=== PATIENT | female | born 1960 | race Caucasian/White ===

== ENCOUNTER 2017-05-03 12:32 | Inpatient (IN) | payer BC ==
[~2017-05-03] VITALS: Ht 162.6 cm; Wt 78.5 kg
[2017-05-03] MEDS ORDERED: IV NORMAL SALINE 1000 ML BAG IV ONE (13:00)
--- NOTE | 2017-05-03 13:10 | NUR ---
PATIENT WAS SEEN BY MD FOR C/O DIARRHEA. PATIENT ALSO C/O ABDOMINAL PAIN. SHE IS SITTING UP, SHE IS AWAKE AND ALERT.
[2017-05-03] MEDS ORDERED: ALPR0.5T8 PO (13:34)
[2017-05-03] MEDS ORDERED: TRAZ-144 PO (13:34)
[2017-05-03] MEDS ORDERED: DESV50TA PO (13:34)
[2017-05-03 13:49] LABS: BASOPHILS % (AUTO) 0.3 % (0.0-2.0); EOSINOPHILS # (AUTO) 0.1 K/uL (0.0-0.7); EOSINOPHILS % (AUTO) 0.5 % (0.0-7.0); HEMATOCRIT 49.3 % (31.2-41.9); HEMOGLOBIN 16.4 g/dL (10.9-14.3); LYMPHOCYTES # (AUTO) 3.6 K/uL (20.0-40.0); LYMPHOCYTES % (AUTO) 29.4 % (20.5-51.5); MEAN CORPUSCULAR HEMOGLOBIN 27.3 uug (24.7-32.8); MEAN CORPUSCULAR HGB CONC 33 g/dL (32.3-35.6); MEAN CORPUSCULAR VOLUME 82.3 fL (75.5-95.3); MONOCYTES % (AUTO) 7.8 % (0.0-11.0); NEUTROPHILS # (AUTO) 7.6 K/uL (1.8-8.9); PLATELET COUNT (AUTO) 415 K/uL (179-408); RED BLOOD CELL COUNT(AUTO) 5.99 MIL/uL (3.63-4.92); WHITE BLOOD COUNT (AUTO) 12.2 K/uL (3.8-11.8)
[2017-05-03 14:13] LABS: BILIRUBIN,DIRECT 0.1 mg/dL (0.0-0.2); BILIRUBIN,TOTAL 0.7 mg/dL (0.2-1.0); CREATININE 1.4 mg/dL (0.6-1.3); POTASSIUM 3.6 mmol/L (3.5-5.1); TOTAL PROTEIN, SERUM 8.5 g/dL (6.4-8.2)
--- NOTE | 2017-05-03 14:22 | NUR ---
PATIENT IS AWAKE AND ALERT WITH NO NEW COMPLAINTS. AWAITING TEST RESULTS.
--- NOTE | 2017-05-03 14:26 | NUR ---
RECEIVED PATIENT FROM ER VIA XMPie, REPORT GIVEN PRIOR TO PATIENT'S ARRIVAL BY ANTONIA HOFFMANN. PATIENT IS AMBULATORY, RECEIVED WITH IVF NS RUNNING FROM ER. IV ACCESS ON THE RIGHT AC #20 INTACT AND PATENT. NOTIFIED DR. ODEN FOR ADMISSION ORDERS, NO COMPLAINTS OF PAIN AND DISCOMFORT AT THIS TIME. WILL CONTINUE TO MONITOR CLOSELY.
--- NOTE | 2017-05-03 16:04 | NUR ---
PATIENT AWARE OF PENDING ADMISSION TO HOSPITAL. REPORT GIVEN TO EDUARDA HOFFMANN.
[2017-05-03 16:45] VITALS: BP 104/66
[2017-05-03] MEDS ORDERED: MORPHINE SULFATE 2 MG/1 ML DISP.SYRIN IV PRN (18:15)
[2017-05-03] MEDS ORDERED: INFLUENZA VACCINE 2017-2018 0.5 ML DISP.SYRIN IM ONE (20:00)
[2017-05-03 20:20] VITALS: BP 119/62
[2017-05-03] MEDS ORDERED: LEVOFLOXACIN 500 MG/D5W 500 MG in PREMIXED 1 EACH IV SCH (20:30)
[2017-05-03] MEDS ORDERED: LEVOFLOXACIN 500 MG/D5W 500 MG in PREMIXED 1 EACH IV ONE (21:00)
[2017-05-03] MEDS: MORPHINE SULFATE 4 MG/1 ML DISP.SYRIN IV PRN (21:36)
[2017-05-03] MEDS: TRAZODONE 50 MG TABLET PO SCH (21:36)
[2017-05-03] MEDS: ALPRAZOLAM 0.5 MG TABLET PO SCH (21:36)
[2017-05-03] MEDS: METRONIDAZOLE 500 MG/NS 100ML 500 MG in PREMIXED 1 EACH IV SCH ×2 (22:00→23:21)
[2017-05-03] MEDS: POTASSIUM CHLORIDE 20 MEQ in IV NS 1000 ML 1,000 ML IV PRN (22:22)
[2017-05-04 00:28] VITALS: BP 95/57
[2017-05-04] MEDS: ONDANSETRON 4 MG/2 ML VIAL IV PRN ×3 (02:01→22:46)
[2017-05-04 04:00] VITALS: BP 86/50
[2017-05-04] MEDS: PANTOPRAZOLE SODIUM 40 MG TABLET.DR PO SCH (05:59)
[2017-05-04] MEDS: METRONIDAZOLE 500 MG/NS 100ML 500 MG in PREMIXED 1 EACH IV SCH ×3 (06:32→22:46)
[2017-05-04 07:32] LABS: THYROID STIMULATING HORMONE 5.566 mIU/mL (0.358-3.740)
[2017-05-04 07:51] LABS: BASOPHILS # (AUTO) 0.1 K/uL (0.0-8.0); BASOPHILS % (AUTO) 0.8 % (0.0-2.0); EOSINOPHILS # (AUTO) 0.4 K/uL (0.0-0.7); EOSINOPHILS % (AUTO) 4.8 % (0.0-7.0); LYMPHOCYTES # (AUTO) 3.3 K/uL (20.0-40.0); LYMPHOCYTES % (AUTO) 37.4 % (20.5-51.5); MEAN CORPUSCULAR HEMOGLOBIN 27.6 uug (24.7-32.8); MEAN CORPUSCULAR HGB CONC 33 g/dL (32.3-35.6); MEAN CORPUSCULAR VOLUME 83.2 fL (75.5-95.3); MONOCYTES # (AUTO) 0.9 K/uL (2.0-10.0); MONOCYTES % (AUTO) 10.1 % (0.0-11.0); NEUTROPHILS # (AUTO) 4.1 K/uL (1.8-8.9); NEUTROPHILS % (AUTO) 46.9 % (38.5-71.5); RED BLOOD CELL COUNT(AUTO) 4.83 MIL/uL (3.63-4.92)
[2017-05-04 07:53] LABS: HEMATOCRIT 40.2 % (31.2-41.9); HEMOGLOBIN 13.3 g/dL (10.9-14.3); PLATELET COUNT (AUTO) 273 K/uL (179-408); WHITE BLOOD COUNT (AUTO) 8.8 K/uL (3.8-11.8)
--- NOTE | 2017-05-04 08:00 | NUR ---
TOLERATING CLEAR LIQUID WELL, NO ACTIVE VOMITING. NO REACTION FROM IV ANTIBIOTIC. WITH IVF NS AT 80ML/HR
[2017-05-04 08:26] LABS: BILIRUBIN,TOTAL 0.6 mg/dL (0.2-1.0); CREATININE 1.1 mg/dL (0.6-1.3); MAGNESIUM 1.9 mg/dL (1.8-2.4); PHOSPHOROUS 4.1 mg/dL (2.5-4.9); POTASSIUM 3.5 mmol/L (3.5-5.1); TOTAL PROTEIN, SERUM 6.8 g/dL (6.4-8.2)
[2017-05-04] MEDS ORDERED: DESVENLAFAXINE SUCCINATE PO SCH (09:00)
[2017-05-04 11:08] VITALS: BP 100/48
[2017-05-04] MEDS ORDERED: POTASSIUM CHLORIDE 20 MEQ TAB.PRT.SR PO ONE (12:00)
--- NOTE | 2017-05-04 12:00 | NUR ---
NO ACUTE CHANGE CONTINUE CURRENT TX PLAN
[2017-05-04] MEDS: MORPHINE SULFATE 4 MG/1 ML DISP.SYRIN IV PRN (12:35)
[2017-05-04 15:06] VITALS: BP 104/63
[2017-05-04] MEDS ORDERED: DESVENLAFAXINE 100 MG PO SCH ×2 (15:15→16:43)
[2017-05-04 17:36] LABS: *BILIRUBIN,URIN NEGATIVE (NEGATIVE); *BLOOD, URINE Trace-lysed (NEGATIVE); *COLOR,URINE YELLOW (YELLOW); *KETONES,URINE 1+ (NEGATIVE); *PROTEIN,URINE NEGATIVE (NEGATIVE); *UROBILINOGEN,URINE 0.2 E.U./dl (NORMAL); LEUKOCYTE ESTERASE ,URINE TRACE (NEGATIVE); NITRITE, URINE NEGATIVE (NEGATIVE); PH,URINE 5.5 (5.0-8.0); UGLUCOSE NEGATIVE (NEGATIVE)
--- NOTE | 2017-05-04 18:05 | NUR ---
STARTED ON REGULAR DIET, CLOSELY MONITORED. SR ON MONITOR
[2017-05-04 18:14] LABS: *CLARITY,URINE SLIGHTLY HAZY (CLEAR)
[2017-05-04 18:15] LABS: MUCUS,URINE MODERATE /LPF (0-FEW); SQUAMOUS EPITHELIAL CELL,UR MODERATE /HPF (NONE SEEN)
[2017-05-04 20:00] VITALS: BP 99/46
[2017-05-04] MEDS ORDERED: LEVOFLOXACIN 250MG /D5W 250 MG in PREMIXED 1 EACH IV SCH (21:00)
[2017-05-04] MEDS ORDERED: LEVOFLOXACIN 500 MG/D5W 100 ML ONE (21:21)
[2017-05-04] MEDS: TRAZODONE 50 MG TABLET PO SCH (21:25)
[2017-05-04] MEDS: ALPRAZOLAM 0.5 MG TABLET PO SCH (21:26)
[2017-05-04] MEDS: LEVOFLOXACIN 500 MG/D5W 500 MG in PREMIXED 1 EACH IV SCH (21:26)
[2017-05-04] MEDS: SIMVASTATIN 20 MG TABLET PO SCH (21:26)
[2017-05-05] MEDS: POTASSIUM CHLORIDE 20 MEQ in IV NS 1000 ML 1,000 ML IV PRN (00:16)
[2017-05-05] MEDS: ONDANSETRON 4 MG/2 ML VIAL IV PRN ×3 (04:58→22:22)
[2017-05-05 06:00] VITALS: BP 140/72
[2017-05-05] MEDS: PANTOPRAZOLE SODIUM 40 MG TABLET.DR PO SCH (06:10)
[2017-05-05] MEDS: ACETAMINOPHEN 325 MG TABLET PO PRN ×2 (06:11→16:19)
[2017-05-05] MEDS: METRONIDAZOLE 500 MG/NS 100ML 500 MG in PREMIXED 1 EACH IV SCH ×3 (06:12→22:24)
--- NOTE | 2017-05-05 06:30 | NUR ---
PT ALERT AWAKE IN NO ACUTE DISTRESS. ABLE TO HAVE FLAGYL IV THERAPY WITHOUT DIFFICULTY. PT STATED SHE HAD SOME PAIN TO IV LEVAQUIN LAST NIGHT. PT OFFERED TYLENOL AT THIS TIME FOR COMFORT MEASURES. DENIES ANY SOB. NO EPISODES OF NAUSEA AT THIS TIME. CONTINUE TO MONITOR. CONTINUOUS IV FLUIDS MAINTAINED WITH CALL LIGHT WITHIN REACH.
[2017-05-05 06:49] LABS: BASOPHILS # (AUTO) 0.1 K/uL (0.0-8.0); BASOPHILS % (AUTO) 1.2 % (0.0-2.0); EOSINOPHILS # (AUTO) 0.3 K/uL (0.0-0.7); EOSINOPHILS % (AUTO) 4.2 % (0.0-7.0); HEMATOCRIT 38.7 % (31.2-41.9); HEMOGLOBIN 13.1 g/dL (10.9-14.3); LYMPHOCYTES # (AUTO) 2.4 K/uL (20.0-40.0); LYMPHOCYTES % (AUTO) 34.7 % (20.5-51.5); MEAN CORPUSCULAR HEMOGLOBIN 28.2 uug (24.7-32.8); MEAN CORPUSCULAR HGB CONC 34 g/dL (32.3-35.6); MEAN CORPUSCULAR VOLUME 83.2 fL (75.5-95.3); MONOCYTES # (AUTO) 0.7 K/uL (2.0-10.0); MONOCYTES % (AUTO) 9.5 % (0.0-11.0); NEUTROPHILS # (AUTO) 3.5 K/uL (1.8-8.9); NEUTROPHILS % (AUTO) 50.4 % (38.5-71.5); PLATELET COUNT (AUTO) 265 K/uL (179-408); RED BLOOD CELL COUNT(AUTO) 4.65 MIL/uL (3.63-4.92)
[2017-05-05 06:57] LABS: CREATININE 0.9 mg/dL (0.6-1.3); MAGNESIUM 1.8 mg/dL (1.8-2.4); PHOSPHOROUS 3.3 mg/dL (2.5-4.9); POTASSIUM 3.7 mmol/L (3.5-5.1)
[2017-05-05] MEDS: DESVENLAFAXINE 100 MG PO SCH (10:22)
[2017-05-05 12:02] VITALS: BP 133/70
[2017-05-05 15:39] VITALS: BP 116/68
--- NOTE | 2017-05-05 17:36 | NUR ---
PATIENT IS ALERT AND ORIENTED. ABLE TO FOLLOWS INSTRUCTION. SHE HAD A EPISODE OF ANXIETY BUT ABLE CALM DOWN. SHE CAN ALSO ABLE TO MANAGE HER DAILY ACTIVITY. THE PLAN FOR TODAY IS D/C HOME BUT SHE CLAIMING NOT TO GO HOME BECAUSE NOBODY IS ARROUND THAT COULD HELP HER HOME. STILL PATIENT PLAN TO GO HOME TOMOROW. STABLE CONDITION .
--- NOTE | 2017-05-05 19:00 | NUR ---
RECEIVED PATIENT IN BED, ALERT ORIENTED NO SOB NO CHEST PAIN, COMPLAIN OF IV SITE PAIN, WILL CHANGED SITE, ATTEND ALL NEEDS. CALL LIGHT WITHIN REACH.
[2017-05-05 20:00] VITALS: BP 122/75
[2017-05-05] MEDS: SIMVASTATIN 20 MG TABLET PO SCH (20:15)
[2017-05-05] MEDS: ALPRAZOLAM 0.5 MG TABLET PO SCH (20:15)
[2017-05-05] MEDS: TRAZODONE 50 MG TABLET PO SCH (20:15)
[2017-05-05] MEDS: LEVOFLOXACIN 500 MG/D5W 500 MG in PREMIXED 1 EACH IV SCH (21:43)
--- NOTE | 2017-05-05 22:10 | NUR ---
GAVE REPORT TO INCOMING NURSE.
[2017-05-06] VITALS (17 sets, daily range): BP systolic 72–124; BP diastolic 37–77
[2017-05-06] MEDS: POTASSIUM CHLORIDE 20 MEQ in IV NS 1000 ML 1,000 ML IV PRN (04:00)
[2017-05-06] MEDS: METRONIDAZOLE 500 MG/NS 100ML 500 MG in PREMIXED 1 EACH IV SCH ×3 (05:14→22:11)
--- NOTE | 2017-05-06 05:26 | NUR ---
aaox4 no acute distress noted. IVF's infusing well. IV antibiotics given as scheduled. Had one episode of nausea, zofran given. felt better. voiding well. will monitor patient. quiet night.
[2017-05-06] MEDS: PANTOPRAZOLE SODIUM 40 MG TABLET.DR PO SCH (06:10)
--- NOTE | 2017-05-06 08:00 | NUR ---
PT C/O N/V YELLOW AND CLEAR WITH WHITE MUCUS. NOTIFIED.
[2017-05-06] MEDS: ONDANSETRON 4 MG/2 ML VIAL IV PRN (08:26)
--- NOTE | 2017-05-06 08:26 | NUR ---
ZOFRAN GIVEN TO PT FOR N/V PT HAD 5-6 EMESIS. AFTER ZOFRAN GIVEN VOMITING STOPPED. MEDICATION EFFECTIVE. PT AFTERWARDS PULLED OUT IV. PENDING INSERTION OF NEW IV. NOTIFIED, PICC LINE ORDERED.
[2017-05-06] MEDS: DESVENLAFAXINE 100 MG PO SCH (08:27)
[2017-05-06] MEDS: MORPHINE SULFATE 4 MG/1 ML DISP.SYRIN IV PRN (09:40)
[2017-05-06] MEDS ORDERED: ALBUTEROL SULFATE 2.5 MG/3 ML NEBU NEB PRN (12:00)
--- NOTE | 2017-05-06 12:45 | NUR ---
PT APPEARS PAIL AND SKIN BECOMES BLOTCHY, PT CONFUSED AND CONTINUES TO LASH OUT AT NURSES. MD NOTIFIED. CONTINUE TO MONITOR PT.
[2017-05-06] MEDS ORDERED: ZIPRASIDONE MESYLATE 20 MG VIAL IM PRN (13:00)
[2017-05-06] MEDS: LORAZEPAM 2 MG/1 ML VIAL IV PRN ×2 (13:17→15:41)
--- NOTE | 2017-05-06 13:20 | NUR ---
PT BP 127/75, HEART RATE 128, O2 SAT 89% 2L NASAL CANNULA. MD NOTIFIED. CONTINUE TO MONITOR PT. PT CONFUSED.
[2017-05-06 13:48] LABS: ABG BASE EXCESS -16.3 mmol/L; ABG PCO2 14.2 mmHg (35.0-45.0); ABG PH 7.309 (7.350-7.450); ABG SITE RIGHT RADIAL; ABG TOTAL HEMOGLOBIN 14.2 G/dL (12.0-16.0); COHb 1.4 % (0.5-1.5); MetHb 0.5 % (0.0-1.5); O2Hb 94.3 % (94.0-97.0); VENT MODE Nasal Cannula
--- NOTE | 2017-05-06 13:59 | NUR ---
VITAL SIGNS 4L NC 90% SAT, PULSE 148, BP 124/75. MD NOTIFIED.
[2017-05-06 14:21] LABS: BASOPHILS # (AUTO) 0.1 K/uL (0.0-8.0); BASOPHILS % (AUTO) 0.3 % (0.0-2.0); LYMPHOCYTES # (AUTO) 2.4 K/uL (20.0-40.0); LYMPHOCYTES % (AUTO) 9.8 % (20.5-51.5); MEAN CORPUSCULAR HEMOGLOBIN 27.6 uug (24.7-32.8); MEAN CORPUSCULAR HGB CONC 32 g/dL (32.3-35.6); MEAN CORPUSCULAR VOLUME 85.6 fL (75.5-95.3); MONOCYTES # (AUTO) 0.6 K/uL (2.0-10.0); MONOCYTES % (AUTO) 2.5 % (0.0-11.0); NEUTROPHILS # (AUTO) 21.7 K/uL (1.8-8.9); NEUTROPHILS % (AUTO) 87.4 % (38.5-71.5); RED BLOOD CELL COUNT(AUTO) 4.98 MIL/uL (3.63-4.92)
--- NOTE | 2017-05-06 14:24 | NUR ---
PT LACTIC ACID LEVEL OF 14.8, MD NOTIFIED. CRITCAL BICARB 8, MD NOTIFIED
[2017-05-06 14:26] LABS: HEMATOCRIT 42.7 % (31.2-41.9); HEMOGLOBIN 13.8 g/dL (10.9-14.3); PLATELET COUNT (AUTO) 441 K/uL (179-408); WHITE BLOOD COUNT (AUTO) 24.9 K/uL (3.8-11.8)
[2017-05-06 14:28] LABS: BILIRUBIN,TOTAL 0.5 mg/dL (0.2-1.0); CREATININE 1.9 mg/dL (0.6-1.3); MAGNESIUM 2.1 mg/dL (1.8-2.4); PHOSPHOROUS 5.3 mg/dL (2.5-4.9); POTASSIUM 3.6 mmol/L (3.5-5.1); TOTAL PROTEIN, SERUM 7.7 g/dL (6.4-8.2)
[2017-05-06] MEDS ORDERED: CEFEPIME HCL 1 G in IV DEXTROSE 5% 50 ML IV SCH ×2 (14:30→16:00)
[2017-05-06] MEDS ORDERED: ENOXAPARIN SODIUM 80 MG/0.8 ML DISP.SYRIN SQ ONE ×2 (14:30→15:00)
--- NOTE | 2017-05-06 14:40 | NUR ---
PT TRANSFERRED TO CCU. REPORT GIVEN TO CCU NURSE DANAE AT BEDSIDE, TRANSFERRED WITH ALL BELONGINGS,AND CHART.
--- NOTE | 2017-05-06 14:40 | NUR ---
Pt brought from 2nd floor room #220 to ICU unit per MD order. Full SBAR report received by TAHIRA Murillo. Pt noted to be tachycardic 137's and MD already made aware.
[2017-05-06 15:04] LABS: LYMPHOCYTES % (MANUAL) 11 % (20-40); MONOCYTES % (MANUAL) 1 % (2-10); NEUTROPHILS % (MANUAL) 88 % (42-75)
--- NOTE | 2017-05-06 15:12 | NUR ---
CLINICAL PHARMACY NOTE: VANCOMYCIN DOSING Request for vancomycin dosing on 56 y/o female 5'4" 160 lbs for documented infection temp 98.2 BUN 5 Scr 1.9 WBC 24.9 also on cefepime Give vancomycin 1gm ivpb today. Will dose by level. Random level ordered for tomorrow.
[2017-05-06] MEDS ORDERED: ACETAMINOPHEN 650 MG SUPP.RECT RC PRN (15:15)
[2017-05-06] MEDS ORDERED: DEXTROSE 50% 50 ML DISP.SYRIN IV PRN (15:15)
[2017-05-06] MEDS ORDERED: INSULIN REGULAR, HUMAN 300 UNIT/3 ML VIAL SQ PRN (15:15)
[2017-05-06] MEDS: BLOOD SUGAR DIAGNOSTIC 1 EACH STRIP VI SCH ×2 (15:32→17:45)
[2017-05-06] MEDS: POTASSIUM CHLORIDE 20 MEQ in IV D5/ 0.9% NACL 1,000 ML IV PRN (15:37)
--- NOTE | 2017-05-06 15:41 | NUR ---
PT FIGHTING, LASHING OUT, PULLING OUT IVS,TOSSING TURNING, NOT ALLOWING CARE. MD NOTIFIED. PT GIVEN ATIVAN AND GEODON PER MD ORDER. MEDICATION EFFECTIVE.
--- NOTE | 2017-05-06 16:10 | NUR ---
dental assisting instructor at the bedside with students for arroyo insertion as ordered by .
[2017-05-06] MEDS: CEFEPIME HCL 1 G in IV NORMAL SALINE 50 ML IV SCH (16:51)
[2017-05-06] MEDS ORDERED: VANCOMYCIN IV 1 G in PREMIXED 0 EACH IV ONE (17:00)
[2017-05-06] MEDS: ASPIRIN 300 MG RECTAL SUPP RC SCH (18:19)
--- NOTE | 2017-05-06 19:30 | NUR ---
patient in bed awake ,but confused ,able to verbalized needs but needs to be reoriented to place ,time and event ,constant reorientation needed ,advised patient to call for help and assistance ,frequent visits done .
--- NOTE | 2017-05-06 19:30 | NUR ---
DR: CECILLE CAME AND UPDATED WITH PATIENTS STATUS AND CONDITION . INFORMED ABOUT TROPONIN LEVEL 4.[address] ABDOMEN NOT DONE YET . CAME AND SPOKED WITH PATIENT . CONTINUE TO MONITOR V/S AND LEVELS OF COMFORT.
--- NOTE | 2017-05-06 20:45 | NUR ---
BRIAN MACE came and examined patient ,spoked with patient at bedside . updated with patient lab results and patient mentation .
[2017-05-06] MEDS: FAMOTIDINE. 20 MG/2 ML VIAL IV SCH (22:11)
[2017-05-06] MEDS: PHENYLEPHRINE IV 20 MG in IV DEXTROSE 5% 250 ML IV PRN (22:47)
[2017-05-07] VITALS (87 sets, daily range): BP systolic 64–157; BP diastolic 25–92
[2017-05-07] MEDS: BLOOD SUGAR DIAGNOSTIC 1 EACH STRIP VI SCH ×4 (01:02→18:15)
[2017-05-07] MEDS ORDERED: PHENYLEPHRINE 10 MG/1 ML VIAL ONE ×5 (01:34→07:23)
--- NOTE | 2017-05-07 04:30 | NUR ---
am care done ,patient wants shower informed no bathroom bed bath done with 3rns at bedside.changed soiled liens and gowns .
[2017-05-07 04:46] LABS: BASOPHILS # (AUTO) 0.3 K/uL (0.0-8.0); BASOPHILS % (AUTO) 1.1 % (0.0-2.0); HEMATOCRIT 39.6 % (31.2-41.9); HEMOGLOBIN 13.2 g/dL (10.9-14.3); LYMPHOCYTES % (AUTO) 21.6 % (20.5-51.5); MEAN CORPUSCULAR HEMOGLOBIN 27.6 uug (24.7-32.8); MEAN CORPUSCULAR HGB CONC 33 g/dL (32.3-35.6); MEAN CORPUSCULAR VOLUME 82.5 fL (75.5-95.3); MONOCYTES # (AUTO) 1.8 K/uL (2.0-10.0); MONOCYTES % (AUTO) 7.7 % (0.0-11.0); NEUTROPHILS # (AUTO) 16.1 K/uL (1.8-8.9); NEUTROPHILS % (AUTO) 69.6 % (38.5-71.5); PLATELET COUNT (AUTO) 409 K/uL (179-408); WHITE BLOOD COUNT (AUTO) 23.2 K/uL (3.8-11.8)
[2017-05-07 05:03] LABS: BILIRUBIN,TOTAL 0.7 mg/dL (0.2-1.0); CREATININE 1.1 mg/dL (0.6-1.3); MAGNESIUM 1.9 mg/dL (1.8-2.4); PHOSPHOROUS 2.5 mg/dL (2.5-4.9); POTASSIUM 2.9 mmol/L (3.5-5.1)
--- NOTE | 2017-05-07 05:45 | NUR ---
respiratory therapist at bedside patient refused ABG ,patient screaming and yelling and refusing . very confused needs to be reoriented . frequent rounding rounding . patient keeps removing the bp cuff and dont want it frequently done .
[2017-05-07] MEDS: METRONIDAZOLE 500 MG/NS 100ML 500 MG in PREMIXED 1 EACH IV SCH ×3 (06:03→22:21)
--- NOTE | 2017-05-07 07:15 | NUR ---
eport received from [employer]. patient awake, confused and agitated. uncooperative. on neosynephrine drip.at 200 mcg/min, infusing via celine picc line. IV D5NS with 20meq KCL infusing 120ml/hr via celine PICC line. arroyo catheter intact. urine adequate output. ekg is sinus rhythm. bp labile from 76/42 to 109/57. patient did allow nursing staff to continue monitoring bp [id number]. Addendum: 05/07/17 at 0959 by HAYDEN SHAH RN Amended: Links added.
[2017-05-07] MEDS: POTASSIUM CHLORIDE 20 MEQ in IV D5/ 0.9% NACL 1,000 ML IV PRN ×2 (07:31→19:34)
--- NOTE | 2017-05-07 08:00 | NUR ---
patient is awake, restless, agitated, confused and uncooperative. speech is clear but occasionally has difficulty expressing her needs. sometimes speaks in her own language out of frustration. Addendum: 05/07/17 at 1007 by HAYDEN SHAH RN Amended: Links added. Addendum: 05/07/17 at 1008 by HAYDEN SHAH RN Amended: Links added.
[2017-05-07] MEDS: LORAZEPAM 2 MG/1 ML VIAL IV PRN ×4 (08:16→15:30)
--- NOTE | 2017-05-07 08:27 | NUR ---
medicated for agitation, patient had been agitated, pulling monitors off and does not allow the nursing staff to care for her efficiently. Addendum: 05/07/17 at 0832 by HAYDEN SHAH RN Amended: Links added. Addendum: 05/07/17 at 0843 by HAYDEN SHAH RN Amended: Links added. Addendum: 05/07/17 at 0910 by HAYDEN SHAH RN Amended: Links added.
--- NOTE | 2017-05-07 08:43 | NUR ---
medicated with geodon IM for persistent agiation Addendum: 05/07/17 at 0843 by HAYDEN SHAH RN Amended: Riki added. Addendum: 05/07/17 at 0910 by HAYDEN SHAH RN Amended: Riki castle.
[2017-05-07] MEDS: PHENYLEPHRINE IV 20 MG in IV DEXTROSE 5% 250 ML IV PRN (08:46)
[2017-05-07] MEDS: MORPHINE SULFATE 4 MG/1 ML DISP.SYRIN IV PRN ×2 (08:59→18:23)
[2017-05-07] MEDS: ASPIRIN 300 MG RECTAL SUPP RC SCH (09:09)
[2017-05-07] MEDS: FAMOTIDINE. 20 MG/2 ML VIAL IV SCH ×2 (09:09→21:12)
--- NOTE | 2017-05-07 09:10 | NUR ---
remained restless, medicated with morphine Addendum: 05/07/17 at 0910 by HAYDEN SHAH RN Amended: Links added.
--- NOTE | 2017-05-07 10:08 | NUR ---
refused echocardiogram in the middle of procedure. Addendum: 05/07/17 at 1008 by HAYDEN SHAH RN Amended: Links added.
[2017-05-07] MEDS: PHENYLEPHRINE IV 80 MG in IV DEXTROSE 5% 250 ML IV PRN ×2 (10:31→18:22)
--- NOTE | 2017-05-07 10:33 | NUR ---
neosynephrine drip changed to 80mg/250 d5W, now at 180mcg/min Addendum: 05/07/17 at 1033 by HAYDEN SHAH RN Amended: Links added.
[2017-05-07] MEDS ORDERED: ENOXAPARIN SODIUM 80 MG/0.8 ML DISP.SYRIN SQ ONE (11:30)
[2017-05-07] MEDS ORDERED: POTASSIUM CHLORIDE 20 MEQ TAB.PRT.SR PO ONE ×2 (11:30→17:15)
--- NOTE | 2017-05-07 11:30 | NUR ---
medicated with ativan for persistent agitation Addendum: 05/07/17 at 1140 by HAYDEN SHAH RN Amended: Links added.
--- NOTE | 2017-05-07 11:59 | NUR ---
accucheck 123, no insulin coverage Addendum: 05/07/17 at 1159 by HAYDEN SHAH RN Amended: Links added.
[2017-05-07] MEDS ORDERED: VANCOMYCIN IV 1 G in PREMIXED 0 EACH IV ONE (12:00)
[2017-05-07] MEDS: ATORVASTATIN 40 MG TABLET PO SCH ×2 (12:08→21:12)
[2017-05-07] MEDS: CLOPIDOGREL 75 MG TABLET PO SCH (12:08)
--- NOTE | 2017-05-07 12:29 | NUR ---
Pt refused ABG, waving wrist and hand, unable to obtain..
[2017-05-07] MEDS: CEFEPIME HCL 1 G in IV NORMAL SALINE 50 ML IV SCH (13:50)
--- NOTE | 2017-05-07 14:58 | NUR ---
CLINICAL PHARMACY NOTE: VANCOMYCIN DOSING O: To continue vancomycin dosing on 56 y/o female 5'4" 160 lbs for SIRS, leukocytosis S: temp 98.2 BUN 7 Scr 1.1 WBC 23.2 Vanco random : 9.3 (with am lab- post vanco 1gm x1 dsoe on 05/06 at 1800 Plan/assessment Due to unstable srcr, will dose by fall off level. Will give vanco 1gm IVPB x1 dose at noon. Will check random level ordered for tomorrow with am labs.
[2017-05-07] MEDS ORDERED: NORMAL SALINE FLUSH 10 ML DISP.SYRIN IV PRN (15:00)
[2017-05-07] MEDS ORDERED: MAGNESIUM SULFATE/D5W 100 ML IV SCH (15:00)
--- NOTE | 2017-05-07 15:06 | NUR ---
SEEN BY DR DICK. orders received Addendum: 05/07/17 at 1506 by HAYDEN SHAH RN Amended: Links added.
--- NOTE | 2017-05-07 15:40 | NUR ---
medicated with ativan for persistent agitation Addendum: 05/07/17 at 1941 by HAYDEN SHAH RN Amended: Riki added. Addendum: 05/07/17 at 1941 by HAYDEN SHAH RN Amended: Riki castle.
--- NOTE | 2017-05-07 18:00 | NUR ---
nicotine patch started for smoking urges. patient wanting to get out of here to be able to smoke Addendum: 05/07/17 at 1939 by HAYDEN SHAH RN Amended: Riki added. Addendum: 05/07/17 at 1941 by HAYDEN SHAH RN Amended: Riki added. Addendum: 05/07/17 at 1941 by HAYDEN SHAH RN Amended: Links added.
[2017-05-07] MEDS: NICOTINE 21 MG/24HR PATCH TD SCH (18:13)
--- NOTE | 2017-05-07 18:15 | NUR ---
accucheck 129, no insulin coverage. [facility] soft diet given patiwent ate 50% Addendum: 05/07/17 at 1938 by HAYDEN SHAH RN Amended: Links added. Addendum: 05/07/17 at 1939 by HAYDEN SHAH RN Amended: Links added. Addendum: 05/07/17 at 1941 by HAYDEN SHAH RN Amended: Links added. Addendum: 05/07/17 at 1942 by HAYDEN SHAH RN Amended: Links added.
--- NOTE | 2017-05-07 18:15 | NUR ---
accucheck 129, no insulin coverage. [facility] soft diet given patiwent ate 50% Addendum: 05/07/17 at 1938 by HAYDEN SHAH RN Amended: Links added. Addendum: 05/07/17 at 1939 by HAYDEN SHAH RN Amended: Links added. Addendum: 05/07/17 at 1941 by HAYDEN SHAH RN Amended: Links added. Addendum: 05/07/17 at 1942 by HAYDEN SHAH RN Amended: Links added.
[2017-05-07] MEDS: Z GUARD REMEDY PASTE 57 GM TUBE TOP SCH (21:12)
[2017-05-07] MEDS: MEROPENEM 0.5 G in IV NORMAL SALINE 50 ML IV SCH (21:13)
[2017-05-07] MEDS: NORMAL SALINE FLUSH 10 ML DISP.SYRIN IV SCH (22:21)
[2017-05-07] MEDS ORDERED: FUROSEMIDE 20 MG/2 ML VIAL IV ONE (23:00)
[2017-05-08] VITALS (83 sets, daily range): BP systolic 64–165; BP diastolic 15–100
[2017-05-08] MEDS: BLOOD SUGAR DIAGNOSTIC 1 EACH STRIP VI SCH ×5 (00:06→21:07)
--- NOTE | 2017-05-08 00:06 | NUR ---
Glu 136. No insulin given, patient is refusing snacks/juice. Will recheck in AM
[2017-05-08] MEDS ORDERED: DEXTROSE 50% 50 ML DISP.SYRIN IV PRN (00:15)
[2017-05-08] MEDS: PHENYLEPHRINE IV 80 MG in IV DEXTROSE 5% 250 ML IV PRN ×2 (03:31→12:47)
[2017-05-08 05:34] LABS: BASOPHILS # (AUTO) 0.1 K/uL (0.0-8.0); BASOPHILS % (AUTO) 0.8 % (0.0-2.0); EOSINOPHILS % (AUTO) 0.1 % (0.0-7.0); HEMATOCRIT 39.6 % (31.2-41.9); HEMOGLOBIN 13.1 g/dL (10.9-14.3); LYMPHOCYTES # (AUTO) 4.6 K/uL (20.0-40.0); LYMPHOCYTES % (AUTO) 24.8 % (20.5-51.5); MEAN CORPUSCULAR HEMOGLOBIN 27.6 uug (24.7-32.8); MEAN CORPUSCULAR HGB CONC 33 g/dL (32.3-35.6); MEAN CORPUSCULAR VOLUME 83.2 fL (75.5-95.3); MONOCYTES # (AUTO) 1.7 K/uL (2.0-10.0); MONOCYTES % (AUTO) 9.5 % (0.0-11.0); NEUTROPHILS # (AUTO) 11.9 K/uL (1.8-8.9); NEUTROPHILS % (AUTO) 64.8 % (38.5-71.5); PLATELET COUNT (AUTO) 339 K/uL (179-408); RED BLOOD CELL COUNT(AUTO) 4.76 MIL/uL (3.63-4.92); WHITE BLOOD COUNT (AUTO) 18.3 K/uL (3.8-11.8)
[2017-05-08 05:53] LABS: BILIRUBIN,TOTAL 0.6 mg/dL (0.2-1.0); PHOSPHOROUS 2.1 mg/dL (2.5-4.9); TOTAL PROTEIN, SERUM 7.1 g/dL (6.4-8.2)
[2017-05-08 06:15] LABS: VANCOMYCIN,RANDOM 8.5 ug/mL (18.0-26.0)
[2017-05-08] MEDS: MEROPENEM 0.5 G in IV NORMAL SALINE 50 ML IV SCH ×3 (06:33→22:14)
[2017-05-08] MEDS: NORMAL SALINE FLUSH 10 ML DISP.SYRIN IV SCH ×3 (06:34→22:14)
[2017-05-08] MEDS: METRONIDAZOLE 500 MG/NS 100ML 500 MG in PREMIXED 1 EACH IV SCH ×3 (06:52→21:07)
--- NOTE | 2017-05-08 07:15 | NUR ---
Pt.was seen by NANCY MEANS MD with new orders.
[2017-05-08] MEDS ORDERED: FUROSEMIDE 20 MG/2 ML VIAL IV ONE (07:30)
[2017-05-08] MEDS: ASPIRIN EC 81 MG TABLET.DR PO SCH (08:32)
[2017-05-08] MEDS: FAMOTIDINE. 20 MG/2 ML VIAL IV SCH (08:32)
[2017-05-08] MEDS: VANCOMYCIN IV 1,250 MG in IV DEXTROSE 5% 500 ML IV SCH (08:32)
[2017-05-08] MEDS: CLOPIDOGREL 75 MG TABLET PO SCH (08:32)
[2017-05-08] MEDS: Z GUARD REMEDY PASTE 57 GM TUBE TOP SCH ×2 (08:32→21:04)
[2017-05-08] MEDS: NICOTINE 21 MG/24HR PATCH TD SCH (08:32)
[2017-05-08] MEDS: ENOXAPARIN SODIUM 80 MG/0.8 ML DISP.SYRIN SQ SCH ×2 (08:35→20:58)
[2017-05-08 09:01] LABS: ABG BASE EXCESS -2.1 mmol/L; ABG HCO3 19.3 mmol/L; ABG PCO2 25.6 mmHg (35.0-45.0); ABG PH 7.496 (7.350-7.450); ABG PO2 77.4 mmHg (75.0-100.0); ABG SITE LEFT BRACHIAL; ABG TOTAL HEMOGLOBIN 14.7 G/dL (12.0-16.0); COHb 1.3 % (0.5-1.5); MetHb 0.2 % (0.0-1.5); O2Hb 94.9 % (94.0-97.0); VENT MODE ROOM AIR
--- NOTE | 2017-05-08 10:02 | NUR ---
CLINICAL PHARMACY NOTE: VANCOMYCIN DOSING O: To continue vancomycin dosing on 56 y/o female 5'4" 160 lbs for SIRS, leukocytosis S: temp 98.6 BUN 7 Scr 1.0 WBC 18.3 Vanco random : 8.5 Plan/assessment Since srcr has decreased, will start vanco 1250mg IVPB q21h for predicted vanco trough level of 15 mcg/ml at steady state. 1st dose is due today at 0900. Plan to order vaco trough level before 4th dose (not yet ordered). Will continue to follow.
--- NOTE | 2017-05-08 10:45 | NUR ---
Pt was seen by TRACEY PRABHAKAR MD.
[2017-05-08] MEDS: INSULIN REGULAR, HUMAN 300 UNIT/3 ML VIAL SQ PRN (11:44)
[2017-05-08] MEDS ORDERED: NEUTRA PHOS PACKET PO ONE (12:00)
--- NOTE | 2017-05-08 14:15 | NUR ---
Pt.was seen by . CT angio was canceled due pt.constant agitation,unable to follow all command.
[2017-05-08] MEDS: POTASSIUM CHLORIDE 20 MEQ in IV D5/ 0.9% NACL 1,000 ML IV PRN (17:47)
--- NOTE | 2017-05-08 17:59 | NUR ---
Visitor at bedside, friend Erin at bedside,interacting with pt.Pt.seems to be more oriented with her.
--- NOTE | 2017-05-08 19:00 | NUR ---
Patient in bed, restless/agitated, attempting to remove lines and medical equipment. On bilateral upper extremity soft restraints, quick release knot. Skin and circulation intact. Denies pain or discomfort. NSR on monitor with frequent PVCs. Received patient with Neosynephrine drip at rate of 40 mcg/min; titrated to 20 mcg/min at this time for stable BP. Room air with SpO2 and RR WNL. PICC to JOSELITO, intact and patent. SBAR report received from Kristal Ty RN. Will continue plan of care.
[2017-05-08] MEDS: ATORVASTATIN 40 MG TABLET PO SCH (20:58)
[2017-05-08] MEDS: FAMOTIDINE 20 MG TABLET PO SCH (20:58)
--- NOTE | 2017-05-08 21:00 | NUR ---
Neosynephrine off at this time. Will continue to monitor. Addendum: 05/09/17 at 0654 by COLLEEN TYSON RN BP remained stable without Neosynephrine support.
[2017-05-08] MEDS: LORAZEPAM 2 MG/1 ML VIAL IV PRN (21:16)
[2017-05-09] VITALS (18 sets, daily range): BP systolic 102–154; BP diastolic 44–76
[2017-05-09 04:52] LABS: BASOPHILS # (AUTO) 0.1 K/uL (0.0-8.0); EOSINOPHILS # (AUTO) 0.1 K/uL (0.0-0.7); EOSINOPHILS % (AUTO) 0.9 % (0.0-7.0); HEMATOCRIT 39.3 % (31.2-41.9); HEMOGLOBIN 13.3 g/dL (10.9-14.3); LYMPHOCYTES # (AUTO) 2.8 K/uL (20.0-40.0); MEAN CORPUSCULAR HEMOGLOBIN 27.9 uug (24.7-32.8); MEAN CORPUSCULAR HGB CONC 34 g/dL (32.3-35.6); MEAN CORPUSCULAR VOLUME 82.2 fL (75.5-95.3); MONOCYTES # (AUTO) 0.7 K/uL (2.0-10.0); MONOCYTES % (AUTO) 7.1 % (0.0-11.0); NEUTROPHILS # (AUTO) 5.7 K/uL (1.8-8.9); PLATELET COUNT (AUTO) 216 K/uL (179-408); RED BLOOD CELL COUNT(AUTO) 4.79 MIL/uL (3.63-4.92); WHITE BLOOD COUNT (AUTO) 9.3 K/uL (3.8-11.8)
[2017-05-09] MEDS: MEROPENEM 0.5 G in IV NORMAL SALINE 50 ML IV SCH ×3 (05:01→21:38)
[2017-05-09 05:18] LABS: BILIRUBIN,TOTAL 0.6 mg/dL (0.2-1.0); CREATININE 0.9 mg/dL (0.6-1.3); MAGNESIUM 1.7 mg/dL (1.8-2.4); PHOSPHOROUS 2.8 mg/dL (2.5-4.9); POTASSIUM 3.2 mmol/L (3.5-5.1); TOTAL PROTEIN, SERUM 6.5 g/dL (6.4-8.2)
[2017-05-09] MEDS: METRONIDAZOLE 500 MG/NS 100ML 500 MG in PREMIXED 1 EACH IV SCH ×2 (05:34→13:14)
[2017-05-09] MEDS: VANCOMYCIN IV 1,250 MG in IV DEXTROSE 5% 500 ML IV SCH (06:14)
[2017-05-09] MEDS: NORMAL SALINE FLUSH 10 ML DISP.SYRIN IV SCH ×3 (06:14→21:36)
--- NOTE | 2017-05-09 06:45 | NUR ---
Patient remains very disoriented. Bilateral wrist restraints, safety checks as appropriate. NSR with frequent PVCs. Neosynephrine off since 2100, BP remained stable. Room air, SpO2 and RR WNL. Khan catheter intact and draining, total 325 mL during shift. Skin care provided. Will endorse to day shift nurse.
[2017-05-09] MEDS: BLOOD SUGAR DIAGNOSTIC 1 EACH STRIP VI SCH ×4 (06:59→21:51)
--- NOTE | 2017-05-09 07:15 | NUR ---
report received from TAHIRA Madison. 56 yold female, was admitted to telemetry floor on 05/03/17 for dehydaration secindary to diarrhea. Patient was transferred to CCU for tachycardia and confusion on 05/06/17 and was placed on beosynephrine drip and IV fluids and already was on antibiotic tharapy. was danika confused and agiatted over the week end requiring sedative, antipsychotins medications plus restraints. had been off neosynephrine. IV fluids infusing at 50ml/hr via celine PICC line. arroyo catheter intact. ekg is sinus rhythm with bigeminal pvcs Addendum: 05/09/17 at 0855 by HAYDEN SHAH RN Amended: Links added.
[2017-05-09] MEDS: NICOTINE 21 MG/24HR PATCH TD SCH (08:23)
[2017-05-09] MEDS: INSULIN REGULAR, HUMAN 300 UNIT/3 ML VIAL SQ PRN (08:23)
[2017-05-09] MEDS: Z GUARD REMEDY PASTE 57 GM TUBE TOP SCH ×2 (08:27→20:08)
[2017-05-09] MEDS: FAMOTIDINE 20 MG TABLET PO SCH ×2 (08:27→20:07)
[2017-05-09] MEDS: CLOPIDOGREL 75 MG TABLET PO SCH (08:27)
[2017-05-09] MEDS: ASPIRIN EC 81 MG TABLET.DR PO SCH (08:27)
--- NOTE | 2017-05-09 10:35 | NUR ---
seen by dr dick. orders received Addendum: 05/09/17 at 1035 by HAYDEN SHAH RN Amended: Links added.
[2017-05-09] MEDS: POTASSIUM CHLORIDE 20 MEQ TAB.PRT.SR PO SCH ×3 (13:12→20:07)
--- NOTE | 2017-05-09 14:39 | NUR ---
CLINICAL PHARMACY NOTE: VANCOMYCIN DOSING O: To continue vancomycin dosing on 56 y/o female 5'4" 160 lbs for SIRS, leukocytosis S: temp 98.2 BUN 8 Scr 0.9 WBC 9.3 Plan/assessment As renal function seems stable, will continue vanco 1250mg IVPB q21h for predicted vanco trough level of 15 mcg/ml at steady state. 2nd dose today at 0600. Plan to order vaco trough level before 4th dose (not yet ordered). Will continue to follow.
[2017-05-09] MEDS ORDERED: MAGNESIUM SULFATE/D5W 100 ML IV SCH (15:00)
--- NOTE | 2017-05-09 17:00 | NUR ---
jessica boone at the bedside. Patient woke up. patient more lucid and cooperative . wrist restraints discontinued Addendum: 05/09/17 at 1851 by HAYDEN SHAH RN Amended: Links added.
--- NOTE | 2017-05-09 18:00 | NUR ---
incontinent of diarrheic stools. complete bed bath given perineal areas are reddened, Addendum: 05/09/17 at 1849 by HAYDEN SHAH RN Amended: Links added. Addendum: 05/09/17 at 1851 by HAYDEN SHAH RN Amended: Links added.
[2017-05-09] MEDS: POTASSIUM CHLORIDE 20 MEQ in IV D5/ 0.9% NACL 1,000 ML IV PRN (18:13)
--- NOTE | 2017-05-09 18:13 | NUR ---
rahul 107. no insulin coverage Addendum: 05/09/17 at 1813 by HAYDEN SHAH RN Amended: Links added.
[2017-05-09] MEDS: CARVEDILOL 3.125 MG TABLET PO SCH (18:15)
[2017-05-09] MEDS: ATORVASTATIN 40 MG TABLET PO SCH (20:07)
--- NOTE | 2017-05-09 20:55 | NUR ---
nsg: pt received fr icu, a/o x2, no acute distress noted. denies discomfort. on RA saturating at 97%. tele, SR with frequent pvc's. v/s stable. has picc line on right upper arm triple lumen. f/c draining clear benigno colored urine via gravity. call light within reach. bed alarm on. with sitter for safety.
--- NOTE | 2017-05-09 21:03 | NUR ---
Report given to Nicolle Ludwig RN. Transferred to room 226 with no significant events.
[2017-05-09] MEDS: METRONIDAZOLE 500 MG TABLET PO SCH (21:35)
--- NOTE | 2017-05-09 23:00 | NUR ---
NSG: PT REFUSED DVT PUMPS.
[2017-05-10 00:33] VITALS: BP 102/44
--- NOTE | 2017-05-10 01:00 | NUR ---
NSG: PT AWAKE, UNABLE TO SLEEP. CALM, COOPERATIVE. NO ACUTE DISTRESS NOTED.
[2017-05-10] MEDS: VANCOMYCIN IV 1,250 MG in IV DEXTROSE 5% 500 ML IV SCH ×2 (03:19→20:53)
[2017-05-10 04:00] VITALS: BP 100/34
--- NOTE | 2017-05-10 06:00 | NUR ---
NSG: PT IS AWAKE, NO ACUTE DISTRESS NOTED. TELE, SR WITH FREQ PVC'S. ALL NEEDS ATTENDED. 1:1 FOR SAFETY.
[2017-05-10] MEDS: NORMAL SALINE FLUSH 10 ML DISP.SYRIN IV SCH ×3 (06:43→22:59)
[2017-05-10] MEDS: MEROPENEM 0.5 G in IV NORMAL SALINE 50 ML IV SCH ×3 (06:43→22:58)
[2017-05-10] MEDS: METRONIDAZOLE 500 MG TABLET PO SCH ×2 (06:43→14:09)
[2017-05-10] MEDS: BLOOD SUGAR DIAGNOSTIC 1 EACH STRIP VI SCH ×4 (06:55→21:02)
[2017-05-10 07:20] LABS: BASOPHILS # (AUTO) 0.1 K/uL (0.0-8.0); BASOPHILS % (AUTO) 0.7 % (0.0-2.0); EOSINOPHILS # (AUTO) 0.1 K/uL (0.0-0.7); EOSINOPHILS % (AUTO) 1.2 % (0.0-7.0); HEMATOCRIT 39.4 % (31.2-41.9); HEMOGLOBIN 13.2 g/dL (10.9-14.3); LYMPHOCYTES # (AUTO) 2.4 K/uL (20.0-40.0); LYMPHOCYTES % (AUTO) 22.1 % (20.5-51.5); MEAN CORPUSCULAR HEMOGLOBIN 27.7 uug (24.7-32.8); MEAN CORPUSCULAR HGB CONC 34 g/dL (32.3-35.6); MEAN CORPUSCULAR VOLUME 82.8 fL (75.5-95.3); MONOCYTES # (AUTO) 0.7 K/uL (2.0-10.0); NEUTROPHILS # (AUTO) 7.4 K/uL (1.8-8.9); PLATELET COUNT (AUTO) 264 K/uL (179-408); RED BLOOD CELL COUNT(AUTO) 4.76 MIL/uL (3.63-4.92); WHITE BLOOD COUNT (AUTO) 10.7 K/uL (3.8-11.8)
[2017-05-10 07:59] LABS: CREATININE 0.8 mg/dL (0.6-1.3); MAGNESIUM 1.8 mg/dL (1.8-2.4); PHOSPHOROUS 1.9 mg/dL (2.5-4.9); POTASSIUM 3.6 mmol/L (3.5-5.1)
--- NOTE | 2017-05-10 08:00 | NUR ---
AWAKE FORGETFUL CONFUSED BUT ABLE TO FOLLOW SIMPLE DIRECTION WELL ON FALL PRECAUTION CALL LIGHT IN REACH AND SITTER 1:1 AT BEDSIDE CONTINUE IVF F/C INPLACE URINE FLOW WELL
[2017-05-10] MEDS: ASPIRIN EC 81 MG TABLET.DR PO SCH (08:45)
[2017-05-10] MEDS: ENOXAPARIN SODIUM 40 MG/0.4 ML DISP.SYRIN SQ SCH (08:46)
[2017-05-10] MEDS: LORAZEPAM 2 MG/1 ML VIAL IV PRN ×2 (08:47)
[2017-05-10] MEDS: NICOTINE 21 MG/24HR PATCH TD SCH (08:51)
[2017-05-10] MEDS: CARVEDILOL 3.125 MG TABLET PO SCH ×2 (08:51→17:33)
[2017-05-10] MEDS: Z GUARD REMEDY PASTE 57 GM TUBE TOP SCH ×2 (08:57→20:57)
[2017-05-10] MEDS: FAMOTIDINE 20 MG TABLET PO SCH ×2 (08:57→20:55)
[2017-05-10] MEDS: CLOPIDOGREL 75 MG TABLET PO SCH (09:00)
[2017-05-10 09:30] VITALS: BP 115/57
--- NOTE | 2017-05-10 09:30 | NUR ---
DR DICK WAS INFORM OF ABNORMAL LAB PO4 WAS1.9 STATE WILL LOOK AND ORDERS
[2017-05-10] MEDS: MORPHINE SULFATE 4 MG/1 ML DISP.SYRIN IV PRN (11:15)
--- NOTE | 2017-05-10 12:00 | NUR ---
RESTING FAMILY AT BEDSIDE NO SOB OR PAIN AT THIS TIME
--- NOTE | 2017-05-10 14:21 | NUR ---
CLINICAL PHARMACY NOTE: VANCOMYCIN DOSING O: To continue vancomycin dosing on 56 y/o female 5'4" 160 lbs for SIRS, leukocytosis S: temp 99 BUN 6 Scr 0.8 WBC 10.7 Plan/assessment As renal has been decreasing, will change dose form vanco 1250mg IVPB q21h to vanco 1250mg IVPB q17 hr for predicted vanco trough level of 15.5 mcg/ml at steady state. 2nd dose today at 2000. Plan to order vanco trough level before 4th dose (not yet ordered). Will continue to follow.
[2017-05-10 14:50] VITALS: BP 120/63
[2017-05-10] MEDS ORDERED: NEUTRA PHOS PACKET PO ONE (16:00)
[2017-05-10] MEDS: POTASSIUM CHLORIDE 20 MEQ in IV D5/ 0.9% NACL 1,000 ML IV PRN (16:40)
--- NOTE | 2017-05-10 17:00 | NUR ---
ENC TO EAT AND DRINK PILI MOD AMT NO PAIN OR N/V AT THIS TIME STILL CONFUSED ,FORGETFUL C/O WARM TEMP CHECK NO FEVER ELECTRIC FAN IN ROOM REQUEST STATE FEEL BETTER
--- NOTE | 2017-05-10 17:20 | NUR ---
STABLE HEMODYNAMIC STATUS PAIN UNDER CONTROL NO ACUTE DISTRESS SAFETY MEASURE PROVIDED SITTER1:1 AT BEDSIDE AND BED ALARM ON
[2017-05-10] MEDS: ACETAMINOPHEN 325 MG TABLET PO PRN (18:11)
[2017-05-10 19:30] VITALS: BP 113/64
--- NOTE | 2017-05-10 19:30 | NUR ---
PT IN ROOM ALERT AWAKE IN NO ACUTE DISTRESS. PT UNABLE TO STATE WHERE SHE IS BUT IS AWARE OF NAME AND . NEEDS FREQUENT REMINDERS AND REORIENTATION TO PLACE. ABLE TO FOLLOW SIMPLE COMMANDS WITHOUT DIFFICULTY. NO REACTION TO CURRENT IV ABX VANCOMYCIN THERAPY. CONTINUE TO MONITOR. SITTER AT BEDSIDE.
[2017-05-10] MEDS ORDERED: FUROSEMIDE 20 MG/2 ML VIAL IV ONE (20:15)
[2017-05-10] MEDS: ATORVASTATIN 40 MG TABLET PO SCH (20:55)
[2017-05-11] MEDS: MEROPENEM 0.5 G in IV NORMAL SALINE 50 ML IV SCH ×2 (05:04→14:20)
[2017-05-11] MEDS: NORMAL SALINE FLUSH 10 ML DISP.SYRIN IV SCH ×3 (05:04→22:03)
--- NOTE | 2017-05-11 06:00 | NUR ---
PT IN ROOM ALERT AWAKE IN NO ACUTE DISTRESS. NO S/S OF INCREASED AGITATION NOTED OVERNIGHT. PT DENIES ANY PAIN OR DISCOMFORT. NEEDS FREQUENT REORIENTATION D/T CONFUSION. NO ADVERSE AFFECTED R/T RECENT IV ABX THERAPY MERREM AND VANCOMYCIN THERAPY. SITTER AT BEDSIDE. CONTINUE TO MONITOR. V/S ARE WNL.
[2017-05-11 06:58] LABS: CREATININE 0.7 mg/dL (0.6-1.3); MAGNESIUM 1.8 mg/dL (1.8-2.4); POTASSIUM 3.9 mmol/L (3.5-5.1)
[2017-05-11] MEDS: BLOOD SUGAR DIAGNOSTIC 1 EACH STRIP VI SCH ×4 (06:59→21:00)
[2017-05-11 07:06] LABS: BASOPHILS # (AUTO) 0.1 K/uL (0.0-8.0); BASOPHILS % (AUTO) 0.7 % (0.0-2.0); EOSINOPHILS # (AUTO) 0.2 K/uL (0.0-0.7); EOSINOPHILS % (AUTO) 1.6 % (0.0-7.0); HEMATOCRIT 42.5 % (31.2-41.9); HEMOGLOBIN 14.2 g/dL (10.9-14.3); LYMPHOCYTES # (AUTO) 2.3 K/uL (20.0-40.0); LYMPHOCYTES % (AUTO) 20.6 % (20.5-51.5); MEAN CORPUSCULAR HEMOGLOBIN 27.6 uug (24.7-32.8); MEAN CORPUSCULAR HGB CONC 33 g/dL (32.3-35.6); MEAN CORPUSCULAR VOLUME 82.6 fL (75.5-95.3); MONOCYTES % (AUTO) 8.5 % (0.0-11.0); NEUTROPHILS # (AUTO) 7.8 K/uL (1.8-8.9); NEUTROPHILS % (AUTO) 68.6 % (38.5-71.5); PLATELET COUNT (AUTO) 286 K/uL (179-408); RED BLOOD CELL COUNT(AUTO) 5.15 MIL/uL (3.63-4.92); WHITE BLOOD COUNT (AUTO) 11.3 K/uL (3.8-11.8)
[2017-05-11 08:00] VITALS: BP 116/50
--- NOTE | 2017-05-11 08:00 | NUR ---
AWAKE CONFUSED BUT FOLLOW SIMPLE DIRECTION AND COOPERATE WELL NO PAIN OR SOB IV WAS HL AT JOSELITO PICC F/C PATENT URINE FLOW WELL ON FALL ANS ASPIRATION PRECAUTION SITTER : AT BEDSIDE
[2017-05-11] MEDS: ASPIRIN EC 81 MG TABLET.DR PO SCH (08:46)
[2017-05-11] MEDS: FAMOTIDINE 20 MG TABLET PO SCH ×2 (08:46→21:57)
[2017-05-11] MEDS: CARVEDILOL 3.125 MG TABLET PO SCH ×2 (08:46→17:03)
[2017-05-11] MEDS: ACETAMINOPHEN 325 MG TABLET PO PRN (08:46)
[2017-05-11] MEDS: NICOTINE 21 MG/24HR PATCH TD SCH (08:46)
[2017-05-11] MEDS: ENOXAPARIN SODIUM 40 MG/0.4 ML DISP.SYRIN SQ SCH (08:47)
[2017-05-11] MEDS: Z GUARD REMEDY PASTE 57 GM TUBE TOP SCH ×2 (08:49→21:58)
[2017-05-11] MEDS: CLOPIDOGREL 75 MG TABLET PO SCH ×2 (09:00→11:00)
[2017-05-11 12:00] VITALS: BP 116/52
--- NOTE | 2017-05-11 12:00 | NUR ---
ASSIST SITTING AT SIDE OF BED TO EAT LUNCH STILL POOR APPETITE BUT DRINK WELL NO PAIN OR SOB REMAINED FORGETFUL /CONFUSED
[2017-05-11] MEDS: VANCOMYCIN IV 1,250 MG in IV DEXTROSE 5% 500 ML IV SCH (12:26)
[2017-05-11 16:00] VITALS: BP 116/52
--- NOTE | 2017-05-11 16:01 | NUR ---
CLINICAL PHARMACY NOTE: VANCOMYCIN DOSING O: To continue vancomycin dosing on 56 y/o female 5'4" 160 lbs for SIRS, leukocytosis S: temp 99.1 BUN 6 Scr 0.7 WBC 11.3 Plan/assessment Will continue Vanco 1250mg IVPB q17 hr(3rd dose given today at 1300) for predicted vanco trough level of 15.5 mcg/ml at steady state. Plan to order vanco trough level before 4th dose (ordered for tomorrow at 0530). Will continue to follow.
--- NOTE | 2017-05-11 16:45 | NUR ---
DR DICK HERE PATIENT CONDITION INFORM F/C DISCONTINUE ORDER URINE FLOW 1000ML
--- NOTE | 2017-05-11 17:30 | NUR ---
OOB UP IN CHAIR FOR DINNER AND ASSIST AMBULATE IN THE WORK[address] WAY GEN WEAK AND BACK TO BED RESTING NO ACUTE DISTRESS SAFETY MEASURE PROVIDED CALL LIGHT IN REACH
--- NOTE | 2017-05-11 19:30 | NUR ---
PT IN ROOM ALERT AWAKE IN NO ACUTE DISTRESS. PT STILL NOTED WITH MILD CONFUSION AND NEEDS FREQUENT REORIENTATION. DENIES ANY PAIN OR DISCOMFORT TO ABDOMEN. ADVISED PT TO REQUEST FOR ASSISTANCE DURING BRP. SITTER AT BEDSIDE. 3 SIDE RAILS RAISED. CONTINUE TO MONITOR.
[2017-05-11 20:00] VITALS: BP 111/51
[2017-05-11] MEDS: ATORVASTATIN 40 MG TABLET PO SCH (21:57)
[2017-05-11] MEDS: LACTOBACILLUS RHAMNOSUS GG 1 EACH CAPSULE PO SCH (21:57)
--- NOTE | 2017-05-12 01:00 | NUR ---
PT ASLEEP AT THIS TIME AND ABLE TO VOID WITHOUT DIFFICULTY SINCE REMOVAL OF F/C. CONTINUE TO MONITOR.
[2017-05-12] MEDS: NORMAL SALINE FLUSH 10 ML DISP.SYRIN IV SCH ×3 (05:01→22:19)
--- NOTE | 2017-05-12 05:30 | NUR ---
PT IN ROOM ASLEEP AND RESTING FOR 6 HRS. NO INCREASED CONFUSION OR S/S OF AGITATION NOTED. PT NOTED WITH 2 EPISODES OF LOOSE BM PER SITTER. ABLE TO FOLLOW SIMPLE COMMANDS WITH MED COMPLIANCE. VANCOMYCIN HELD AT THIS TIME D/T VANCO TROUGH CHECK. CONTINUE TO MONITOR. SITTER AT BEDSIDE.
[2017-05-12 06:21] VITALS: BP 115/63
[2017-05-12] MEDS: BLOOD SUGAR DIAGNOSTIC 1 EACH STRIP VI SCH ×2 (06:41→11:12)
--- NOTE | 2017-05-12 07:35 | NUR ---
RECEIVED SHIFT REPORT FROM BARREL POLISHER INSIDE NURSE. 1:1 SITTER AT BEDSIDE, STABLE CONDITION, NO S/S OF DISTRESS. CALL LIGHT WITHIN REACH.
[2017-05-12] MEDS: LACTOBACILLUS RHAMNOSUS GG 1 EACH CAPSULE PO SCH ×2 (08:19→20:44)
[2017-05-12] MEDS: CARVEDILOL 3.125 MG TABLET PO SCH (08:19)
[2017-05-12] MEDS: ASPIRIN EC 81 MG TABLET.DR PO SCH (08:19)
[2017-05-12] MEDS: ENOXAPARIN SODIUM 40 MG/0.4 ML DISP.SYRIN SQ SCH (08:22)
[2017-05-12] MEDS: ONDANSETRON 4 MG/2 ML VIAL IV PRN (08:27)
[2017-05-12 08:34] VITALS: BP 101/46
[2017-05-12] MEDS: NICOTINE 21 MG/24HR PATCH TD SCH ×4 (09:00→09:38)
[2017-05-12] MEDS: CLOPIDOGREL 75 MG TABLET PO SCH (09:13)
[2017-05-12] MEDS: Z GUARD REMEDY PASTE 57 GM TUBE TOP SCH ×2 (09:14→20:45)
[2017-05-12] MEDS: FAMOTIDINE 20 MG TABLET PO SCH ×2 (10:01→20:44)
[2017-05-12 12:29] VITALS: BP 94/59
[2017-05-12] MEDS: LORAZEPAM 2 MG/1 ML VIAL IV PRN ×2 (15:14→22:19)
[2017-05-12 15:59] VITALS: BP 100/60
[2017-05-12 19:51] VITALS: BP_SYST 105; BP_SYST 99; BP_DIAS 59
--- NOTE | 2017-05-12 20:00 | NUR ---
RECEIVED PATIENT AWAKE IN BED WITH 1:1 SITTER AT BEDSIDE. PATIENT IS A/O X2, VERY FORGETFUL AND NEEDS REDIRECTION. VSS. AFEBRILE. PICC LINE NOTED TO RIGHT UPPER ARM, INTACT. ON RA. BED ALARM ON. CALL LIGHT IN REACH. ALL NEEDS ATTENDED. WILL CONTINUE TO MONITOR.
[2017-05-12] MEDS: ATORVASTATIN 40 MG TABLET PO SCH (20:45)
--- NOTE | 2017-05-12 22:20 | NUR ---
PATIENT GIVEN ATIVAN 1MG IV PRN PER RN. VSS. SITTER AT BEDSIDE FOR SAFETY. WILL CONTINUE TO MONITOR.
--- NOTE | 2017-05-12 23:30 | NUR ---
PATIENT ASLEEP IN BED. SITTER AT BEDSIDE. BED ALARM ON FOR SAFETY. ALL NEEDS ATTENDED, WILL CONTINUE TO MONITOR AND ASSESS.
[2017-05-13] MEDS: NORMAL SALINE FLUSH 10 ML DISP.SYRIN IV SCH ×2 (05:28→14:09)
--- NOTE | 2017-05-13 05:45 | NUR ---
PATIENT RESTING IN BED. SITTER AT BEDSIDE. SLEPT WELL THROUGHOUT THE NIGHT. DENIES PAIN OR DISCOMFORT. NO RESP. DISTRESS NOTED. CALL LIGHT IN REACH. ALL NEEDS ATTENDED. WILL CONTINUE TO MONITOR.
[2017-05-13 06:38] VITALS: BP 104/51
--- NOTE | 2017-05-13 07:27 | NUR ---
PATIENT RESTING COMFORTABLY IN BED, NO S/S OF DISTRESS AT THIS TIME, STABLE CONDITION. 1:1 SITTER AT BEDSIDE FOR SAFETY. WILL CONTINUE TO MONITOR. POSSIBLE D/C TODAY.
[2017-05-13] MEDS: FAMOTIDINE 20 MG TABLET PO SCH (08:43)
[2017-05-13] MEDS: ASPIRIN EC 81 MG TABLET.DR PO SCH (08:43)
[2017-05-13] MEDS: LACTOBACILLUS RHAMNOSUS GG 1 EACH CAPSULE PO SCH (08:44)
[2017-05-13] MEDS: CLOPIDOGREL 75 MG TABLET PO SCH (08:44)
[2017-05-13] MEDS: ENOXAPARIN SODIUM 40 MG/0.4 ML DISP.SYRIN SQ SCH (08:47)
[2017-05-13] MEDS: Z GUARD REMEDY PASTE 57 GM TUBE TOP SCH (08:47)
[2017-05-13 16:00] VITALS: BP 136/73
[2017-05-13] MEDS ORDERED: ATOR10TA PO (16:51)
[2017-05-13] MEDS ORDERED: ASPI-618 PO (16:51)
[2017-05-13] MEDS ORDERED: FAMO-132 PO (16:51)
--- NOTE | 2017-05-13 18:34 | NUR ---
PATIENT DISCHARGED AT THIS TIME IN STABLE CONDITION VIA TRANSPORTATION BY PATIENT'S DAUGHTER. PATIENT GOING HOME WITH HOME HEALTH (ASSISTED HOME HEALTH). DISCHARGE TEACHING/EDUCATION PROVIDED, DISCHARGE PACKET COMPLETED, SIGNED BY PATIENT. BELONGINGS CHECKLIST SIGNED BY PATIENT. PATIENT'S MEDICATIONS PICKED UP FROM PHARMACY AND GIVEN BACK TO PATIENT. STABLE CONDITION AT THIS TIME, NO S/S OF DISTRESS. PICCLINE DISCONNECTED, ID BAND TAKEN OFF. PATIENT LEFT MED-SURG FLOOR THROUGH WHEEL CHAIR, ASSISTED BY TRIMMER AND BORER MACHINE OPERATOR TO PATIENT'S DAUGHTER CAR IN FRONT LOBBY IN SAFE CONDITION.
== END 2017-05-13 18:40 | disposition home health service (06) | DRG 871 ==
LOC: ER 12:32 → TELE 16:08 → MED 05-04 19:13 → TELE 05-06 12:55 → OBSER 05-06 15:14 → CCU 05-06 15:20 → TELE 05-09 21:00 → MED 05-10 16:40
PROVIDERS: ADMIT Internal Medicine; ATTEND Internal Medicine
PROC: 02HV33Z Insertion of Infusion Device into Superior Vena Cava, Percutaneous Approach (ICD-10-PCS; principal; 2017-05-06)
DX: A41.9 Sepsis, unspecified organism (principal); N17.0 Acute kidney failure with tubular necrosis; I21.4 Non-ST elevation (NSTEMI) myocardial infarction; J96.01 Acute respiratory failure with hypoxia; R65.21 Severe sepsis with septic shock; R57.0 Cardiogenic shock; G92 Toxic encephalopathy; I50.21 Acute systolic (congestive) heart failure; E87.2 Acidosis; A04.9 Bacterial intestinal infection, unspecified; E86.0 Dehydration; Z71.3 Dietary counseling and surveillance; E66.9 Obesity, unspecified; Z68.29 Body mass index [BMI] 29.0-29.9, adult; Z98.84 Bariatric surgery status; Z86.79 Personal history of other diseases of the circulatory system; Z90.49 Acquired absence of other specified parts of digestive tract; F41.9 Anxiety disorder, unspecified; Z79.899 Other long term (current) drug therapy; F32.9 Major depressive disorder, single episode, unspecified; E87.6 Hypokalemia; E83.39 Other disorders of phosphorus metabolism; G93.89 Other specified disorders of brain; Z87.891 Personal history of nicotine dependence; G40.909 Epilepsy, unspecified, not intractable, without status epilepticus; I49.3 Ventricular premature depolarization; E78.5 Hyperlipidemia, unspecified; R79.1 Abnormal coagulation profile
CPT/HCPCS: 36415; 36569; 36600; 70030-TC; 70450; 71045; 71046; 71250; 74018; 83550; 83605; 83735; 84100; 84132; 84443; 85025; 85730; 87040; 87086; 87400; 90686; 93005; 93307; 95819; A4663; J0692; J1650; J1815; J1940; J1956; J2060; J2185; J2270; J2370; J2405; J3370; J3475; J3480; J3486; J3490; J7030; J7042; J7060